=== PATIENT | male | born 1955 ===

== ENCOUNTER 2022-09-05 14:40 | Outpatient (CLI) | payer OTHER, SELFPAY ==
--- NOTE | 2022-09-05 15:07 | MR_ITS ---
WS: [id number] MRI HEAD WITH CONTRAST WITH ATTENTION TO THE INTERNAL AUDITORY CANALS TECHNIQUE: Sagittal T1, T2 axial, T2 axial flair, axial susceptibility weighted imaging, axial diffus ion weighted images, and coronal T2 images were obtained. Pre and post T1 axial and post T1 coronal i mages. ADC and FSPGR images. Post gadolinium images with attention to the internal auditory canals. A xial fiesta imaging. CLINICAL INFORMATION: MIXED CONDUCTIVE AND SENSORINEURAL HEARING LOSS, BILATERAL COMPARISON: None. FINDINGS: No evidence of restricted diffusion to suggest acute ischemia. Ventricular system and basal cisterns are patent. Minimal small vessel changes. Mild parenchymal volume loss. Normal posterior fossa. Kalani l vascular flow voids at the skull base. No extra-axial fluid collections. No evidence of mass or mas s effect. Mild mucosal thickening in the ethmoid air cells. Paranasal sinuses are otherwise well aera desean. Mild mucosal thickening LEFT mastoid tip. No hemosiderin on susceptibly weighted images. Proximal 7th and 8th cranial nerves are normal in appearance. Normal trigeminal nerve root entry zone s. No evidence of enhancing IAC or CP angle mass. Normal optic chiasm and pituitary infundibulum. Nor mal cavernous sinuses and Meckel's cave. Temporal lobes and hippocampal formations are normal in appe arance. No abnormal intracranial enhancement. MR/MR iac's wo/w con* [id number] IMPRESSION: 1. No evidence of enhancing IAC or CP angle mass. Normal trigeminal nerve root entry zones. 2. Mild mucosal thickening ethmoid air cells and frontal ethmoidal recess. Mas toid air cells are well aerated. Trace mucosal thickening LEFT mastoid tip. 3. Mild small vessel changes with mild parenchymal volume loss. 4. No hemosiderin on susceptibly weighted images.
[2022-09-05] MEDS: gadobenate dimeglumine 20 mL vial IV (15:54)
== END 2022-09-05 14:41 | disposition home or self-care (01) ==
LOC: RAD 14:52
PROVIDERS: PCP Specialist; Visit Provider Specialist
DX: H90.6 Mixed conductive and sensorineural hearing loss, bilateral (principal)
CPT/HCPCS: 70553; A9577